=== PATIENT | male | born 1980 | race Caucasian/White ===

== ENCOUNTER 2016-12-15 03:25 | Emergency (ER) | payer OTHER ==
--- NOTE | 2016-12-15 04:01 | ED CARDIAC/CP/PALPITATIONS ---
History of Present Illness General Chief Complaint: Chest Pain Stated Complaint: HEART PAIN PER PT Source: patient, old records, Epic Exam Limitations: no limitations Vital Signs & Intake/Output Vital Signs & Intake/Output Vital Signs Date Time Temp Pulse Resp B/P Pulse O2 O2 Flow FiO2 Ox Delivery Rate 12/15 0706 97.0 74 16 118/59 98 Room Air 12/15 0342 77 20 143/63 99 Room Air Allergies Coded Allergies: No Known Allergies (12/15/16) Reconcile Medications No Known Home Medications Triage Note: to room 6 ekg in progress reports cp 1 week ago seen at [facility] dx with rheumatic fever and myopericarditis. yg developed cp all day took 800 mg motrin with effect at 1999. woke up at 0230 soaked in sweat and cp same aslast week. Triage Nurses Notes Reviewed? yes Onset: Just prior to arrival Duration: hour(s):, better Timing: recent history Quality/Severity: severe, stabbing Location: central Radiation: Left chest Activities at Onset: rest Prior Chest Pain/Card Workup: cardiac cath, echocardiography Nitro Today/Relief: no nitro taken today Aspirin Today: no aspirin today HPI: 1 week prior to admission patient was admitted to [facility] with STEMI on EKG. was taken to the Director Of Photography found to have normal coronaries and normal left ventricular function testing positive for strep and troponin of 4.6. He was then diagnosed with myopericarditis described ibuprofen and amoxicillin. He's been improving until today several hours prior to admission he had recurrent central chest tightness radiating to the left lower chest moderate to severe improved with ibuprofen. He denies fever chills shortness of breath nausea vomiting diarrhea abdominal pain dysuria rash headache bleeding. (IAN CARRILLO MD) Past History Travel History Traveled to [place] past 21 day No Medical History Any Pertinent Medical History? see below for history Neurological: NONE EENT: NONE Cardiovascular: MYOPERICARDITIS RHEUMATIC FEVER Respiratory: NONE Gastrointestinal: NONE Hepatic: NONE Renal: NONE Musculoskeletal: NONE Psychiatric: NONE Endocrine: NONE Surgical History Surgical History: non-contributory Psychosocial History What is your primary language British Tobacco Use: Never used Family History Hx Contributory? No (IAN CARRILLO MD) Review of Systems Review of Systems Constitutional: Reports: no symptoms. EENTM: Reports: no symptoms. Respiratory: Reports: no symptoms. Cardiovascular: Reports: see HPI, chest pain. GI: Reports: no symptoms. Genitourinary: Reports: no symptoms. Musculoskeletal: Reports: no symptoms. Skin: Reports: no symptoms. Neurological/Psychological: Reports: no symptoms. Hematologic/Endocrine: Reports: no symptoms. Immunologic/Allergic: Reports: no symptoms. All Other Systems: Reviewed and Negative (IAN CARRILLO MD) Physical Exam Physical Exam General Appearance: well developed/nourished, alert, awake, anxious, mild distress Head: atraumatic, normal appearance Eyes: Bilateral: normal appearance, PERRL, EOMI. Ears, Nose, Throat: normal pharynx, normal ENT inspection Neck: normal inspection, supple, full range of motion, no midline tenderness Respiratory: normal breath sounds, chest non-tender, no respiratory distress, quiet respiration, lungs clear Cardiovascular: regular rate/rhythm, normal peripheral pulses, norml femoral pulses equa Peripheral Pulses: 4+ carotid (R), 4+ carotid (L) Gastrointestinal: normal bowel sounds, soft, non-tender, no organomegaly Back: normal inspection, normal range of motion Extremities: normal inspection, normal capillary refill, normal range of motion, no edema Neurologic/Psych: no motor/sensory deficits, awake, alert, oriented x 3, normal gait, normal mood/affect, 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 Skin: intact, normal color, warm/dry Lymphatic: no anterior cervical nilton Core Measures ACS in differential dx? Yes ASA ordered for poss ACS? No-ACS ruled out Severe Sepsis Present: No Septic Shock Present: No (IAN CARRILLO MD) Progress Differential Diagnosis: costochondritis, musculoskeletal pain, myocarditis, pericarditis Plan of Care: Orders Procedure Date/time Status Regular Diet 12/15 B Active TROPONIN LEVEL 12/15 0800 Complete EKG 12/15 0754 Active TROPONIN LEVEL 12/15 0341 Complete PROTHROMBIN TIME 12/15 0341 Complete COMPREHENSIVE METABOLIC PANEL 12/15 0341 Complete CBC WITHOUT DIFFERENTIAL 12/15 034 Complete EKG 12/15 0328 Active Laboratory Tests 12/15/16 0755: Troponin I < 0.01 12/15/16 0400: Anion Gap 10, Estimated GFR > 60, BUN/Creatinine Ratio 19.0, Glucose 94, Calcium 9.1, Total Bilirubin 0.9, AST 31, ALT 57, Alkaline Phosphatase 83, Troponin I < 0.01, Total Protein 7.4, Albumin 3.8, Globulin 3.6, Albumin/Globulin Ratio 1.1, PT 11.5, INR 1.10, CBC w Diff NO MAN DIFF REQ, RBC 5.12, MCV 85.4, MCH 29.2, RDW 11.9, MPV 7.0 L, Gran % 61.6, Lymphocytes % 26.4, Monocytes % 8.5, Eosinophils % 2.8, Basophils % 0.7, Absolute Granulocytes 5.6, Absolute Lymphocytes 2.4, Absolute Monocytes 0.8 H, Absolute Eosinophils 0.3, Absolute Basophils 0.1, PUBS MCHC 34.2 PATIENT SIGNED OUT TO ME BY DR CARRILLO. PENDING REPEAT TROPONIN AT 8 AM. 12/15/2016 8:41:05 AM Repeat EKG shows slight change in V4 with no T-wave inversion, slight change in V5. 2 of the leads were changed at the time of second EKG performance. Repeat troponin is negative. Patient had a recent negative cardiac catheterization. He will follow-up with ribbon lapper tender in the office. (COLEEN XIE MD) Initial ED EKG: normal axis, normal intervals, normal p-waves, normal QRS complex, normal sinus rhythm, T-wave inversions 1,L v4-5 Prior EKG: changed Rhythm Strip: normal sinus rhythm Hand-Off Endorsed To: BAMBI RIVERO DO Endorsed Time: 0700 Pending: labs (repeat troponin 8AM) (IAN CARRILLO MD) Repeat EKG: changed (NO T WAVE IN V4) (COLEEN XIE MD) Departure Departure Condition: Stable Clinical Impression Primary Impression: Acute myopericarditis Secondary Impressions: Chest pain syndrome Departure Forms: Customer Survey General Discharge Information Prescriptions: Current Visit Scripts No Known Home Medications (IAN CARRILLO MD) Departure Time of Disposition: 0841 Disposition: HOME OR SELF CARE Additional Instructions: FOLLOW UP WITH YOUR C UNIX DEVELOPER IN THE OFFICE. PA/[employer] Co-Sign Statement Statement: ED Attending supervision documentation- [] I saw and evaluated the patient. I have also reviewed all the pertinent lab results and diagnostic results. I agree with the findings and the plan of care as documented in the PA's/[employer]'s documentation. [X] I have reviewed the ED Record and agree with the PA's/[employer]'s documentation. [] Additions or exceptions (if any) to the PAs/[employer]'s note and plan are summarized below: [] (ROJAS KIMBALL,COLEEN) Critical Care Note Critical Care Note Critical Care Time: 30-74 min (40) (GERARDO KIMBALL,IAN)
[2016-12-15 04:35] LABS: PT 11.5 SEC (9.4-12.5)
[2016-12-15 04:37] LABS: ABSOLUTE BASOPHIL COUNT 0.1 /CUMM (0.0-0.2); ABSOLUTE EOSINOPHIL COUNT 0.3 /CUMM (0.0-0.7); ABSOLUTE GRANULOCYTE CT 5.6 /CUMM (1.4-6.5); ABSOLUTE LYMPH COUNT 2.4 /CUMM (1.2-3.4); ABSOLUTE MONOCYTE COUNT 0.8 /CUMM (0.10-0.60); BASOPHIL % 0.7 % (0.0-2.0); EOSINOPHIL % 2.8 % (0-5); GRANULOCYTE % 61.6 % (42.2-75.2); HEMATOCRIT 43.8 % (42-52); MEAN CORPUSCULAR HGB 29.2 PG (27.0-31.0); MEAN CORPUSCULAR HGB CONC 34.2 G/DL (33.0-37.0); MEAN CORPUSCULAR VOLUME 85.4 FL (80.0-94.0); PLATELET COUNT 328 /CUMM (130-400); RBC DISTRIBUTION WIDTH 11.9 % (11.5-14.5); RED BLOOD CELL CT 5.12 /CUMM (4.70-6.10)
[2016-12-15 08:44] VITALS: BP 114/64
== END 2016-12-15 08:46 ==
LOC: EDBD 03:25 → ERH 03:25
PROVIDERS: Emergency Medicine
DX: R07.89 Other chest pain (principal); I30.9 Acute pericarditis, unspecified
CPT/HCPCS: 93005; 93010